=== PATIENT | male | born 1950 | race Asian ===

== ENCOUNTER → 2023-01-11 11:03 | Outpatient (BNVA) | payer MEDICARE, SELFPAY | PROVIDERS: PCP Internal Medicine; Visit Provider Surgery | DX: K42.9 Umbilical hernia without obstruction or gangrene (principal) | CPT/HCPCS: 99202 ==

== ENCOUNTER 2023-02-14 06:48 | Day surgery (SDC) | payer MEDICARE, SELFPAY ==
[2023-02-09 15:26] VITALS: BMI 28.1
--- NOTE | 2023-02-13 09:44 | HO.ANESPROP2 ---
Documented by User: Whit Crocker NP 02/13/23 09:45 HPI - Anesthesia Eval Consult details Narrative: 72yo M for Hernia Repair Umbilical with mesh PMFSH Active Problems Active Problems: All Active Problems (Updated 02/09/23 @ 15:21 by Gala Urena RN) Umbilical hernia (Acute) Hyperlipidemia (Acute) Depression (Acute) Past Medical History Medical History Benign essential tremor Borderline hypercholesterolemia Depression Hyperlipidemia Macular degeneration Umbilical hernia Family History Family History (Updated 01/11/23 @ 11:13 by MATTHIAS Lema) Mother Uterus cancer, Onset Age: 59 Surgical History Surgical History Hx of excision of mass Social History Social History (Updated 01/11/23 @ 11:14 by MATTHIAS Lema) Alcohol intake: current Alcohol intake frequency: holidays/special occasions only Patient Tobacco Use Status: Never used Tobacco Are you DNR?: No Advance Directives: No Advance Directives Information Provided: Yes Nutrition Risks: No Nutritional Risk Meds Allergies Allergy/AdvReac Type Severity Reaction Status Date / Time No Known Allergies Allergy Verified 01/11/23 11:12 Home Medications Medication Instructions Recorded Confirmed Last Taken Type citalopram 20 mg tablet 20 mg PO DAILY 01/11/23 02/09/23 Unknown History fenofibrate 160 mg tablet 160 mg PO DAILY 01/11/23 02/09/23 Unknown History simvastatin 20 mg tablet 20 mg PO BEDTIME 01/11/23 02/09/23 Unknown History aspirin 81 mg tablet,delayed 81 mg PO DAILY 02/09/23 02/09/23 Unknown History release indomethacin 50 mg capsule 50 mg PO TID 02/09/23 02/09/23 Unknown History omega 8-lfz-wns-fish oil 1,000 mg 1 cap PO DAILY 02/09/23 02/09/23 Unknown History (120 mg-180 mg) capsule (Fish Oil) pantoprazole 40 mg tablet,delayed 40 mg PO DAILY 02/09/23 02/09/23 Unknown History release vit C 250 mg-vit E 90 mg-zinc 40 1 tab PO DAILY 02/09/23 02/09/23 Unknown History mg-copper 1 ch-jaetkp-fiklcg capsule (PreserVision AREDS-2) Exam Exam Date and Time: February 13, 2023 0944 Height,Weight and Vital Signs: Height 5 ft 7.72 in Weight 83 kg Assessment and Plan Assessment Anesthesia Assessment: Chart Reviewed Documented by User: Eloy Woodard MD 02/14/23 07:33 [facility] Past Medical History Medical History Benign essential tremor Borderline hypercholesterolemia Depression Hyperlipidemia Macular degeneration Umbilical hernia Family History Family History (Updated 01/11/23 @ 11:13 by MATTHIAS Lema) Mother Uterus cancer, Onset Age: 59 Family history of problems with anesthesia: No Surgical History Surgical History Hx of excision of mass History of Problems with Anesthesia: No Social History Social History (Updated 01/11/23 @ 11:14 by MATTHIAS Lema) Alcohol intake: current Alcohol intake frequency: holidays/special occasions only Patient Tobacco Use Status: Never used Tobacco Are you DNR?: No Advance Directives: No Advance Directives Information Provided: Yes Nutrition Risks: No Nutritional Risk Meds Allergies Allergy/AdvReac Type Severity Reaction Status Date / Time No Known Allergies Allergy Verified 01/11/23 11:12 Home Medications Medication Instructions Recorded Confirmed Last Taken Type citalopram 20 mg tablet 20 mg PO DAILY 01/11/23 02/09/23 Unknown History fenofibrate 160 mg tablet 160 mg PO DAILY 01/11/23 02/09/23 Unknown History simvastatin 20 mg tablet 20 mg PO BEDTIME 01/11/23 02/09/23 Unknown History aspirin 81 mg tablet,delayed 81 mg PO DAILY 02/09/23 02/09/23 Unknown History release indomethacin 50 mg capsule 50 mg PO TID 02/09/23 02/09/23 Unknown History omega 2-wkk-ehd-fish oil 1,000 mg 1 cap PO DAILY 02/09/23 02/09/23 Unknown History (120 mg-180 mg) capsule (Fish Oil) pantoprazole 40 mg tablet,delayed 40 mg PO DAILY 02/09/23 02/09/23 Unknown History release vit C 250 mg-vit E 90 mg-zinc 40 1 tab PO DAILY 02/09/23 02/09/23 Unknown History mg-copper 1 ly-zzrdix-voztfj capsule (PreserVision AREDS-2) Exam Airway Mallampati Class: II TM Dist: >3cm Neck ROM: Full Heart: ok Lungs: ok Assessment and Plan Assessment Anesthesia Assessment: Anesthesia Plan Discussed Final Anesthetic Review Family History of Problems with Anesthesia: No History of Problems with Anesthesia: No NPO: Yes ASA Class: II Final Preanesthetic Review: No Changes in Pt Med Stat, Meds/Allgs Chart Reviewed, Consent Obtained/Reviewed and Anes Risks/Benef Reviewed Patient Risk: Intermediate Procedure Risk: Low Anesthetic Plan Anesthetic Plan: GA and Agree w/ Assess. and Plan Disposition: Standard PACU
[2023-02-14] VITALS (7 sets, daily range): BP systolic 105–123; BP diastolic 67–81; PULSE 61–69; RESP 16–18; TEMP 36.3–36.4; O2SAT 91–96
[2023-02-14] MEDS: Lactated Ringers 1,000 ML 100 ML IVCONT (07:08)
--- NOTE | 2023-02-14 07:18 | MHC.SHP ---
Pre-Procedural Eval Section A Date of Service: 02/14/23 Section B Chief Complaint: Umbilical hernia without obstruction or gangrene Details of Present Illness: has reducible mass on umbilicus, increasing in size Relevant Family History (Specify if Yes): No Relevant Social History: None Present Medications: see Short Stay Collaborative assessment Medical History: Significant History (Hyperlipidemia, depression) Allergies: Allergies Allergy/AdvReac Type Severity Reaction Status Date / Time No Known Allergies Allergy Verified 01/11/23 11:12 Review of Systems Sugical H&P ROS: Negative: Constitution, Cardiovascular, Respiratory, Neurological, Psychiatric, Hem-Onc, Allergic/Immunologic, Gastrointestinal, Genitourinary, Musculoskeletal, Integumentary, Endocrine and Eyes/Ears/Nose/Throat Exam Surgical H&P Exam: Normal: HEENT, Normal: Heart, Normal: Lungs, Normal: Extremities, Normal: Skin and Normal: Neurological and Significant Findings: Abdomen (Reducible umbilical hernia) Plan Diagnosis/Plan: Unchanged I have reviewed the history and physical and performed a pertinent physical examination on my patient. No changes have occurred unless specified. Time Spent With Patient Time: Total time managing care of this patient today ____ minutes.
--- NOTE | 2023-02-14 08:12 | P.OP_ITS ---
Operative Note Operative Note Date of Service: 02/14/23 Narrative: Preop diagnosis: Umbilical hernia Postop diagnosis: Umbilical hernia Procedure: Repair of umbilical hernia with Ventralex mesh Surgeon: Shashank Back MD executive sales assistant: REBECCA Fonseca The patient is a 72-year-old male with a reducible mass on the umbilicus consistent with an umbilical hernia. He understood the technique of repair of umbilical hernia with mesh. He was aware of the risks, benefits, and alternatives. He was brought to the operating room. He was placed supine under general anesthesia via laryngeal mask airway. The abdomen is prepped and draped in the usual sterile fashion. A surgical time-out was done. Thep matient received cefazolin 2 g IV preoperatively. I infiltrated the planned line of incision with lidocaine 1%. I made the incision in a supraumbilical transverse curvilinear fashion using blade 15. This was carried down with electrocautery through the full-thickness of the skin subcutaneous fat until the hernia was visualized. I sharply dissected the hernia off of the rest of the umbilicus using she Metzenbaum scissors. The umbilicus was therefore lifted completely as a flap. I continued to dissect the Herniasac down to the fascial defect. The hernia contents consisted of fat. I the sac from the fascial defect until I was able to completely reduce this. The margins were free of adhesions. The fascial defect was about 1.5 cm in diameter. I positioned a small-sized Ventralex mesh underneath the fascia and was flattened. I secured the Prolene straps of the mesh the fascia with the Prolene 2 sutures. The Prolene straps were then trimmed flush. Closed the fascial defect with the [id number]-kijnt Maxon 1 stitch. The umbilicus was tacked down to the fascia with Polysorb 3-0 sutures to recreate the dimple. The subcutaneous layer was reapposed with Polysorb 3-0 interrupted sutures. Skin closure was achieved with Polysorb 4-0 subcuticular running sutures. Dressings were applied. The area was infiltrated with Marcaine 0.5% for postop analgesia the procedure was completed. The patient tolerated the procedure well. There were no immediate complications. Initial and final counts of sponges and instruments were correc t. Estimated blood loss was less than 10 cc. The patient was extubated without difficulty and transferred to the recovery room with stable vital signs.
[2023-02-14] MEDS: Acetaminophen 325 MG TABLET 650 MG PO (08:49)
[2023-02-14] MEDS: oxyCODONE HCl Immed Release 5 MG TABLET PO (09:18)
== END 2023-02-14 09:50 | disposition home or self-care (01) ==
PROVIDERS: PCP Internal Medicine; Visit Provider Surgery
PROC: (CPT 49591; principal; 2023-02-14 08:30)
DX: K42.9 Umbilical hernia without obstruction or gangrene (principal)
CPT/HCPCS: 49591; C1781; J0690; J2405; J2795; J3010

== ENCOUNTER → 2023-03-01 09:39 | Outpatient (BNVA) | payer MEDICARE, SELFPAY | PROVIDERS: PCP Internal Medicine; Visit Provider Surgery ==